=== PATIENT | female | born 1960 | race Caucasian/White ===

== ENCOUNTER 2018-04-10 09:27 | Observation (INO) | payer SELFPAY ==
[~2018-04-10] VITALS: Ht 157.5 cm; Wt 44.6 kg
[~2018-04-10 09:27] MED LIST: ASPIRIN81 MG PO
[2018-04-10] MEDS ORDERED: SODIUM CHLORIDE 0.9% 1000ML 1,000 ML IV STA (10:16)
[2018-04-10] MEDS ORDERED: DIATRIZOATE MEGL/DIATRIZOA SOD 30 ML BTL PO ONE (10:38)
[2018-04-10 11:01] LABS: CLARITY,URINE CLOUDY (CLEAR); COLOR,URINE YELLOW (YELLOW); LEUKOCYTE ESTERASE ,URINE 1+ (NEGATIVE)
[2018-04-10 11:02] LABS: BILIRUBIN,URINE NEGATIVE (NEGATIVE); KETONES,URINE NEGATIVE (NEGATIVE); NITRITE,URINE NEGATIVE (NEGATIVE); PROTEIN,URINE DIPSTICK NEGATIVE (NEGATIVE); URINE UROBILINOGEN 1 mg/dL (0.2 - 1)
[2018-04-10 11:13] LABS: BACTERIA,URINE FEW /HPF; EPITHELIAL CELLS,URINE RARE /LPF; RBC,URINE 0-5 /HPF (0-5); WBC,URINE (MAN) 21-50 /HPF (0-5)
[2018-04-10 11:52] LABS: BASOPHILS % 0.4 % (0.0-1.0); EOSINOPHILS % 0.1 % (0.0-6.0); HEMATOCRIT 47.3 % (34.2-44.1); HEMOGLOBIN 15.8 g/dL (12.0-16.0); LYMPHOCYTES # (AUTO) 1.7 (1.0-3.2); LYMPHOCYTES % 23.7 % (18.0-39.1); MEAN CORPUSCULAR HEMOGLOBIN 33.1 pg (28-32); MEAN CORPUSCULAR HGB CONC 33.4 g/dL (31-35); MONOCYTES # (AUTO) 0.6 (0.2-0.8); MONOCYTES % 8.2 % (4.4-11.3); NEUTROPHILS # (AUTO) 4.7 (2.1-6.9); NEUTROPHILS % 67.2 % (38.7-80.0); PLATELET COUNT 346 x10e3/uL (140-360); RED BLOOD COUNT 4.78 x10e6/uL (3.6-5.1); RED CELL DISTRIBUTION WIDTH 13.8 % (11.7-14.4)
[2018-04-10] MEDS ORDERED: ONDANSETRON HCL INJ 2 MG/ML VIAL IV STA (11:57)
[2018-04-10] MEDS ORDERED: MORPHINE SULFATE 4 MG/ML SYR IV PRN (12:00)
[2018-04-10 12:13] LABS: ALANINE AMINOTRANSFERASE 29 IU/L (0-55); ALBUMIN 4.3 g/dL (3.5-5.0); ALBUMIN/GLOBULIN RATIO 1.1 (0.8-2.0); ALKALINE PHOSPHATASE 76 IU/L (40-150); AMYLASE 70 U/L (25-125); ANION GAP 15.5 mmol/L (8-16); BLOOD UREA NITROGEN 7 mg/dL (7-26); BUN/CREATININE RATIO 9 (6-25); CALCIUM 10.4 mg/dL (8.4-10.2); CARBON DIOXIDE 27 mmol/L (22-29); CHLORIDE 104 mmol/L (98-107); CREATININE, SERUM 0.74 mg/dL (0.57-1.11); EST GLOMERULAR FILTRATION RATE > 60 ML/MIN (60-); GLUCOSE 102 mg/dL (74-118); LIPASE 15 U/L (8-78); POTASSIUM 4.5 mmol/L (3.5-5.1); SODIUM 142 mmol/L (136-145)
[2018-04-10] MEDS ORDERED: MORPHINE SULFATE 2 MG/ML SYR IV PRN ×2 (12:15→19:00)
[2018-04-10] MEDS ORDERED: HYDRALAZINE HCL 20 MG/ML VIAL IV STA (13:48)
--- NOTE | 2018-04-10 14:00 | Diagnostic Imaging Report ---
EXAM: CT Abdomen and Pelvis WITH contrast INDICATION: \S\ABDOMINAL PAIN \S\[id number] \S\1330 COMPARISON: CT and ultrasound dated 06/13/2017 TECHNIQUE: Abdomen and pelvis were scanned utilizing a multidetector helical scanner from the lung base to the pubic symphysis after administration of IV contrast. Coronal and sagittal reformations were obtained. Routine protocol was performed. Scan was performed when during portal venous phase. IV CONTRAST: 100 mL of Isovue-370 ORAL CONTRAST: Gastroview COMPLICATIONS: None RADIATION DOSE: Total DLP: 159.98 mGy*cm Estimated effective dose: (DLP x 0.015 x size factor) mSv CTDIvol has been reviewed. It is below the limits set by the Radiation Protocol Committee (RPC). FINDINGS: LINES and TUBES: None. LOWER THORAX: Emphysematous changes. Mild dependent atelectasis. HEPATOBILIARY: Hepatic steatosis. No focal hepatic lesions. No biliary ductal dilation. GALLBLADDER: No radio-opaque stones or sludge. No wall thickening. SPLEEN: No splenomegaly. PANCREAS: No focal masses or ductal dilatation. ADRENALS: No adrenal nodules KIDNEYS/URETERS: Kidneys enhance symmetrically. No hydronephrosis. No renal mass. Anterior right inferior pole subcentimeter hypodensity is probably a cyst. No stones. GI TRACT: No abnormal distention, wall thickening, or evidence of bowel obstruction. Colonic diverticulosis without evidence of diverticulitis. Appendix is normal. PELVIC ORGANS/BLADDER: Hysterectomy. Bladder is under distended, limiting evaluation. LYMPH NODES: No lymphadenopathy. VESSELS: Unremarkable. Mild aortoiliac atherosclerotic disease. PERITONEUM / RETROPERITONEUM: No free air or fluid. BONES: Unremarkable. Left femoral head and acetabulum subchondral cystic changes. SOFT TISSUES: Unremarkable. IMPRESSION: 1. No acute inflammatory process in the abdomen/pelvis. 2. Colonic diverticulosis without evidence of diverticulitis. 3. Hepatic steatosis. Signed by: Dr. Phillip Sosa MD on 04/10/2018 1:57 PM
[2018-04-10] MEDS ORDERED: SODIUM CHLORIDE 0.9% 50ML 50 ML ONE (15:04)
[2018-04-10] MEDS ORDERED: IOPAMIDOL 370 MG/ML 200 ML INFUS..BTL INJ ONE (15:04)
[2018-04-10 17:55] VITALS: BP 138/71
[2018-04-10 18:46] VITALS: BP 138/71
[2018-04-10 18:52] VITALS: BP 138/71
[2018-04-10] MEDS ORDERED: ACETAMINOPHEN 325 MG TAB PO PRN (19:00)
[2018-04-10] MEDS ORDERED: ACETAMINOPHEN/CODEINE 300MG - 30MG TAB PO PRN (19:00)
[2018-04-10] MEDS ORDERED: ONDANSETRON HCL 4 MG ORAL DISINTEGRATING TAB PO PRN (19:00)
[2018-04-10 19:45] VITALS: BP 151/74
[2018-04-10 20:00] VITALS: BP 151/74
[2018-04-11] VITALS: BP 137/60
[2018-04-11 04:00] VITALS: BP 129/59
[2018-04-11 07:10] VITALS: BP 129/59
[2018-04-11 07:26] VITALS: BP 134/69
[2018-04-11 11:25] VITALS: BP 122/70
[2018-04-11 15:44] VITALS: BP 138/64
--- NOTE | 2018-04-12 07:24 | Discharge Summary ---
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 SECONDARY DIAGNOSES 1. Chronic recurrent diverticulitis in the past. 2. Chronic obstructive pulmonary disease. CONSULTANTS: Dr. Farfan GI. PROCEDURES/STUDIES PERFORMED: Computerized tomography of the abdomen and pelvis. HISTORY: Per [facility]. HOSPITAL COURSE: The patient was admitted. Clinically, the patient is not infected. Her white count is normal. She has no fever. She has no rebound tenderness to suggest any peritonitis. We tried to do a barium enema. However, the machine was down. I explained the situation in detail with the daughter at the bedside and also the patient. Given the fact that this is a nonmedical emergency, we are supposed to do outpatient workup. The patient will contact her PCP at [facility] tomorrow to request a barium enema. However, she understands that if at any time her pain got worse where she develops fever, she is to present to an emergency room. The patient was seen and examined today. CONDITION ON DISCHARGE: Stable. DISCHARGE MEDICATIONS: Please see medication reconciliation form. DORA COPELAND M.D. Job#: [id number]
== END 2018-04-11 16:21 | disposition home or self-care (01) ==
LOC: ER 09:27 → ERHOLD 16:42 → IMCU 17:36
PROVIDERS: ADMIT Internal Medicine; ATTEND Internal Medicine
DX: K57.32 Diverticulitis of large intestine without perforation or abscess without bleeding (principal); N39.0 Urinary tract infection, site not specified; J44.9 Chronic obstructive pulmonary disease, unspecified; F17.210 Nicotine dependence, cigarettes, uncomplicated; Z88.1 Allergy status to other antibiotic agents; Z88.0 Allergy status to penicillin; Z88.2 Allergy status to sulfonamides
CPT/HCPCS: 36415; 74177; 80053; 81001; 82150; 83690; 85025; 87086; 87210; 87491; 87591; 99284; G0378 ×2; J2405; J7030; Q9967; J2270